=== PATIENT | male | born 1955 | race Two or more races ===

== ENCOUNTER 2019-09-04 13:28 | Outpatient (CLI) | payer OTHER | END 2019-09-04 13:32 | disposition home or self-care (01) | LOC: RAD 13:28 | DX: M54.5 Low back pain (principal); M54.6 Pain in thoracic spine ==

== ENCOUNTER → 2019-09-04 | Outpatient (CLI) | payer OTHER | END | disposition home or self-care (01) | LOC: LAB 14:38 | DX: R80.8 Other proteinuria (principal); N39.0 Urinary tract infection, site not specified; E03.8 Other specified hypothyroidism; R73.09 Other abnormal glucose; I10 Essential (primary) hypertension; E78.89 Other lipoprotein metabolism disorders ==

== ENCOUNTER 2019-09-05 09:31 | Outpatient (CLI) | payer OTHER | END 2019-09-05 09:39 | disposition home or self-care (01) | LOC: LAB 09:31 | DX: R80.8 Other proteinuria (principal); N39.0 Urinary tract infection, site not specified; E03.8 Other specified hypothyroidism; I10 Essential (primary) hypertension; R73.09 Other abnormal glucose; E78.49 Other hyperlipidemia ==

== ENCOUNTER 2021-02-03 09:54 | Emergency (ER) | payer OTHER ==
[~2021-02-03] VITALS: Ht 177.8 cm; Wt 72.6 kg
[2021-02-03] MEDS ORDERED: COZAAR50 MG (10:18)
[2021-02-03] MEDS ORDERED: CIPRO500 MG PO (17:58)
[2021-02-03] MEDS ORDERED: LEVSIN/SL0.125 MG SL (17:58)
[2021-02-03] MEDS ORDERED: PRILOSEC OTC20 MG PO (17:58)
[2021-02-03] MEDS ORDERED: FLAGYL500MG PO (17:58)
[2021-02-03] MEDS ORDERED: PROBIOTIC1 EACH PO (17:58)
[2021-02-03] MEDS ORDERED: COZAAR50 MG PO (17:58)
== END 2021-02-03 20:24 | disposition home or self-care (01) ==
LOC: ER 09:54
DX: K57.32 Diverticulitis of large intestine without perforation or abscess without bleeding (principal); R10.32 Left lower quadrant pain

== ENCOUNTER 2021-08-02 10:28 | Outpatient (CLI) | payer OTHER ==
[~2021-08-02 10:28] MED LIST: CIPRO500 MG PO; COZAAR50 MG; COZAAR50 MG PO; FLAGYL500MG PO; LEVSIN/SL0.125 MG SL; PRILOSEC OTC20 MG PO; PROBIOTIC1 EACH PO
== END 2021-08-02 10:37 | disposition home or self-care (01) ==
LOC: LAB 10:28
PROVIDERS: ATTEND Internal Medicine
DX: K57.92 Diverticulitis of intestine, part unspecified, without perforation or abscess without bleeding (principal); I73.9 Peripheral vascular disease, unspecified; M50.30 Other cervical disc degeneration, unspecified cervical region; L98.499 Non-pressure chronic ulcer of skin of other sites with unspecified severity; N18.30 Chronic kidney disease, stage 3 unspecified; D69.2 Other nonthrombocytopenic purpura; N40.0 Benign prostatic hyperplasia without lower urinary tract symptoms; I11.9 Hypertensive heart disease without heart failure; L25.9 Unspecified contact dermatitis, unspecified cause; I45.10 Unspecified right bundle-branch block; L60.0 Ingrowing nail; M06.4 Inflammatory polyarthropathy; I10 Essential (primary) hypertension

== ENCOUNTER 2021-08-03 10:24 | Outpatient (CLI) | payer OTHER | END 2021-08-03 10:37 | disposition home or self-care (01) | LOC: LAB 10:24 | PROVIDERS: ATTEND Internal Medicine | DX: K57.92 Diverticulitis of intestine, part unspecified, without perforation or abscess without bleeding (principal); I73.9 Peripheral vascular disease, unspecified; M50.30 Other cervical disc degeneration, unspecified cervical region; L98.499 Non-pressure chronic ulcer of skin of other sites with unspecified severity; N18.30 Chronic kidney disease, stage 3 unspecified; D69.2 Other nonthrombocytopenic purpura; N40.0 Benign prostatic hyperplasia without lower urinary tract symptoms; I11.9 Hypertensive heart disease without heart failure; R31.29 Other microscopic hematuria; L25.9 Unspecified contact dermatitis, unspecified cause; I45.10 Unspecified right bundle-branch block; L60.0 Ingrowing nail; M06.4 Inflammatory polyarthropathy ==

== ENCOUNTER 2022-03-02 09:52 | Outpatient (CLI) | payer OTHER | END 2022-03-02 10:02 | disposition home or self-care (01) | LOC: LAB 09:52 | PROVIDERS: ATTEND Internal Medicine | DX: I73.9 Peripheral vascular disease, unspecified (principal); L25.9 Unspecified contact dermatitis, unspecified cause; D69.6 Thrombocytopenia, unspecified; R63.4 Abnormal weight loss; K57.52 Diverticulitis of both small and large intestine without perforation or abscess without bleeding; N40.0 Benign prostatic hyperplasia without lower urinary tract symptoms; I11.9 Hypertensive heart disease without heart failure; R73.03 Prediabetes; E55.9 Vitamin D deficiency, unspecified; E03.9 Hypothyroidism, unspecified; E78.5 Hyperlipidemia, unspecified; Z12.11 Encounter for screening for malignant neoplasm of colon; R31.29 Other microscopic hematuria; N18.30 Chronic kidney disease, stage 3 unspecified ==

== ENCOUNTER 2022-10-22 06:08 | Emergency (ER) | payer OTHER ==
[~2022-10-22] VITALS: Ht 175.3 cm; Wt 74.4 kg
== END 2022-10-22 09:22 | disposition home or self-care (01) ==
LOC: ER 06:08
DX: B02.8 Zoster with other complications (principal)

== ENCOUNTER 2022-11-30 10:12 | Outpatient (CLI) | payer OTHER | END 2022-11-30 10:27 | disposition home or self-care (01) | LOC: LAB 10:12 | DX: G61.9 Inflammatory polyneuropathy, unspecified (principal); K29.50 Unspecified chronic gastritis without bleeding; I73.9 Peripheral vascular disease, unspecified; B48.8 Other specified mycoses; N40.0 Benign prostatic hyperplasia without lower urinary tract symptoms; I11.9 Hypertensive heart disease without heart failure; D69.2 Other nonthrombocytopenic purpura; R31.29 Other microscopic hematuria; L25.9 Unspecified contact dermatitis, unspecified cause; D69.6 Thrombocytopenia, unspecified; R63.4 Abnormal weight loss; K57.92 Diverticulitis of intestine, part unspecified, without perforation or abscess without bleeding ==

== ENCOUNTER 2022-12-03 10:28 | Outpatient (CLI) | payer OTHER | END 2022-12-03 10:29 | disposition home or self-care (01) | LOC: LAB 10:28 | DX: K29.50 Unspecified chronic gastritis without bleeding (principal); K57.92 Diverticulitis of intestine, part unspecified, without perforation or abscess without bleeding; R63.4 Abnormal weight loss ==

== ENCOUNTER 2022-12-06 11:46 | Outpatient (CLI) | payer OTHER | END 2022-12-06 11:58 | disposition home or self-care (01) | LOC: SONOGRAMA 11:46 | PROVIDERS: ATTEND Internal Medicine | DX: N40.0 Benign prostatic hyperplasia without lower urinary tract symptoms (principal); I11.9 Hypertensive heart disease without heart failure; D69.2 Other nonthrombocytopenic purpura; R31.29 Other microscopic hematuria; N18.30 Chronic kidney disease, stage 3 unspecified ==

== ENCOUNTER 2022-12-11 06:29 | Outpatient (CLI) | payer OTHER | END 2022-12-11 06:33 | disposition home or self-care (01) | LOC: LAB 06:29 | PROVIDERS: ATTEND Internal Medicine | DX: R73.09 Other abnormal glucose (principal); N18.30 Chronic kidney disease, stage 3 unspecified; N40.0 Benign prostatic hyperplasia without lower urinary tract symptoms; I11.9 Hypertensive heart disease without heart failure ==

== ENCOUNTER 2023-04-09 11:17 | Outpatient (CLI) | payer OTHER | END 2023-04-09 11:21 | disposition home or self-care (01) | LOC: RAD 11:17 | PROVIDERS: ATTEND Internal Medicine | DX: M17.0 Bilateral primary osteoarthritis of knee (principal) ==

== ENCOUNTER 2023-04-15 09:47 | Outpatient (CLI) | payer OTHER | END 2023-04-15 09:54 | disposition home or self-care (01) | LOC: LAB 09:47 | DX: R97.20 Elevated prostate specific antigen [PSA] (principal) ==

== ENCOUNTER 2023-04-24 10:49 | Outpatient (CLI) | payer OTHER | END 2023-04-24 10:53 | disposition home or self-care (01) | LOC: RAD 10:49 | DX: G61.9 Inflammatory polyneuropathy, unspecified (principal); K29.50 Unspecified chronic gastritis without bleeding; I73.9 Peripheral vascular disease, unspecified; L21.8 Other seborrheic dermatitis; J66.8 Airway disease due to other specific organic dusts; B48.8 Other specified mycoses; N18.30 Chronic kidney disease, stage 3 unspecified; N40.0 Benign prostatic hyperplasia without lower urinary tract symptoms; I11.9 Hypertensive heart disease without heart failure; D69.2 Other nonthrombocytopenic purpura; M17.0 Bilateral primary osteoarthritis of knee; L25.9 Unspecified contact dermatitis, unspecified cause ==

== ENCOUNTER 2023-08-12 10:53 | Outpatient (CLI) | payer OTHER ==
[2023-08-12 12:35] LABS: URINE APPEARANCE Clear; URINE BILIRRUBIN Negative (NEGATIVE); URINE BLOOD Negative; URINE COLOR Yellow; URINE GLUCOSE Negative (NEGATIVE); URINE LEUKOCYTE Negative; URINE NITRATE Negative; URINE PROTEIN Negative (NEGATIVE)
[2023-08-12 12:38] LABS: URINE EPITHELIAL CELLS 2.2 uL (0.0-38.8); URINE RBC 3.5 uL (0.0-20.8)
[2023-08-12 12:56] LABS: HEMATOCRIT 42.6 % (39.0-48.0); HEMOGLOBIN 14.5 g/dL (13-16.00); MEAN CORPUSCULAR HEMOGLOBIN 31.6 pg (27.00-32.0); PLATELET COUNT 131 K/uL (150-450); RED BLOOD COUNT 4.58 M/uL (4.00-6.00); RED CELL DISTRIBUTION WIDTH 13.1 % (11.5-14.5)
[2023-08-12 13:09] LABS: ALBUMIN 3.9 gm/dL (3.4-5.0); BILIRUBIN TOTAL 0.75 mg/dL (0.3-1.2); CALCIUM 9.5 mg/dL (8.5-10.1); CHOL HDL RATIO 2.8 (0-5.0); CREATININE SERUM 1.44 mg/dL (0.70-1.30); GFR 48.5; GLOBULINA 3.5 G/DL (2.4-3.5); POTASSIUM 4.27 mEq/L (3.5-5.1); PROSTATIC SPECIFIC ANTIGEN 2.45 NG/ML (0.010-4.00); TOTAL PROTEIN 7.4 gm/dL (6.4-8.2)
[2023-08-12 13:27] LABS: URINE BACTERIA 1.2 uL (0.0-1933)
== END 2023-08-12 10:54 | disposition home or self-care (01) ==
LOC: LAB 10:53
PROVIDERS: ATTEND Internal Medicine
DX: G61.9 Inflammatory polyneuropathy, unspecified (principal); K29.50 Unspecified chronic gastritis without bleeding; I73.9 Peripheral vascular disease, unspecified; L21.8 Other seborrheic dermatitis; J66.8 Airway disease due to other specific organic dusts; B48.8 Other specified mycoses; N40.0 Benign prostatic hyperplasia without lower urinary tract symptoms; I11.9 Hypertensive heart disease without heart failure; D69.2 Other nonthrombocytopenic purpura; R31.29 Other microscopic hematuria; L25.9 Unspecified contact dermatitis, unspecified cause; D69.6 Thrombocytopenia, unspecified

== ENCOUNTER 2023-08-13 13:24 | Outpatient (CLI) | payer OTHER ==
[2023-08-13 15:36] LABS: ob NEGATIVE (NEGATIVE)
== END 2023-08-13 13:25 | disposition home or self-care (01) ==
LOC: LAB 13:24
PROVIDERS: ATTEND Internal Medicine
DX: G61.9 Inflammatory polyneuropathy, unspecified (principal); K29.50 Unspecified chronic gastritis without bleeding; I73.9 Peripheral vascular disease, unspecified; L21.8 Other seborrheic dermatitis; J66.8 Airway disease due to other specific organic dusts; B48.8 Other specified mycoses; N18.30 Chronic kidney disease, stage 3 unspecified; N40.0 Benign prostatic hyperplasia without lower urinary tract symptoms; I11.9 Hypertensive heart disease without heart failure; D69.2 Other nonthrombocytopenic purpura; M17.0 Bilateral primary osteoarthritis of knee; L25.9 Unspecified contact dermatitis, unspecified cause; D69.6 Thrombocytopenia, unspecified

== ENCOUNTER 2023-10-05 09:32 | Outpatient (CLI) | payer OTHER ==
[2023-10-05 11:36] LABS: HEMATOCRIT 42.5 % (39.0-48.0); HEMOGLOBIN 14.9 g/dL (13-16.00); MEAN CELL VOLUME 93.7 fL (80.0-100.00); MEAN CORPUSCULAR HEMOGLOBIN 32.8 pg (27.00-32.0); PLATELET COUNT 163 K/uL (150-450); RED BLOOD COUNT 4.54 M/uL (4.00-6.00); RED CELL DISTRIBUTION WIDTH 13.5 % (11.5-14.5)
[2023-10-05 11:48] LABS: ERYTHROCYTE SEDIMENTATION RATE 1 mm/hr
== END 2023-10-05 09:34 | disposition home or self-care (01) ==
LOC: LAB 09:32
PROVIDERS: ATTEND Internal Medicine Hematology & Oncology
DX: D64.89 Other specified anemias (principal); D51.8 Other vitamin B12 deficiency anemias; R70.0 Elevated erythrocyte sedimentation rate; M06.9 Rheumatoid arthritis, unspecified

== ENCOUNTER → 2023-12-18 11:05 | Outpatient (CLI) | payer OTHER ==
[~2023-12-18 11:05] MED LIST changes: +ACID REDUCER20 M1 PO; +CLARITIN-D 121 EACH PO; +FINASTERIDE5 MG; +FINASTERIDE5 MG PO; +LOSARTAN POTAS100 MG PO; +OMEPRAZOLE20 MG PO; +TAMS0.4C PO; +TAMSULOSIN HCL0.4 MG PO; +ZITHROMAX500 MG PO
[2023-12-18 12:23] LABS: PH,URINE 5.5 (5.0-8.0); URINE APPEARANCE Clear; URINE BILIRRUBIN Negative (NEGATIVE); URINE BLOOD Negative; URINE COLOR Yellow; URINE GLUCOSE Negative (NEGATIVE); URINE LEUKOCYTE Negative; URINE NITRATE Negative; URINE PROTEIN Negative (NEGATIVE)
[2023-12-18 12:26] LABS: URINE EPITHELIAL CELLS 1.6 uL (0.0-38.8); URINE RBC 2.4 uL (0.0-20.8); URINE WBC 2.4 uL (0.0-23.2)
[2023-12-18 13:07] LABS: ALBUMIN 3.5 gm/dL (3.4-5.0); BILIRUBIN TOTAL 0.51 mg/dL (0.3-1.2); CALCIUM 9.1 mg/dL (8.5-10.1); CHOL HDL RATIO 2.8 (0-5.0); CREATININE SERUM 1.27 mg/dL (0.70-1.30); GFR 56.06; GLOBULINA 3.7 G/DL (2.4-3.5); POTASSIUM 4.58 mEq/L (3.5-5.1); PROSTATIC SPECIFIC ANTIGEN 1.6 NG/ML (0.010-4.00); TOTAL PROTEIN 7.2 gm/dL (6.4-8.2)
[2023-12-18 13:14] LABS: TSH 5.06 uIU/mL (0.358-3.74)
[2023-12-18 13:19] LABS: HEMATOCRIT 42.6 % (39.0-48.0); HEMOGLOBIN 14.5 g/dL (13-16.00); MEAN CELL VOLUME 95.1 fL (80.0-100.00); MEAN CORPUSCULAR HEMOGLOBIN 32.4 pg (27.00-32.0); MEAN CORPUSCULAR HGB CONC 34.1 g/dl (32.0-36.0); RED BLOOD COUNT 4.47 M/uL (4.00-6.00); RED CELL DISTRIBUTION WIDTH 13.1 % (11.5-14.5)
[2023-12-18 13:22] LABS: PLATELET COUNT 111 K/uL (150-450)
== END | disposition home or self-care (01) ==
LOC: LAB 11:05
PROVIDERS: ATTEND Internal Medicine
DX: A90 Dengue fever [classical dengue] (principal); D72.819 Decreased white blood cell count, unspecified; D69.6 Thrombocytopenia, unspecified; G61.9 Inflammatory polyneuropathy, unspecified; K29.50 Unspecified chronic gastritis without bleeding; I73.9 Peripheral vascular disease, unspecified; L21.8 Other seborrheic dermatitis; J66.8 Airway disease due to other specific organic dusts; B48.8 Other specified mycoses; N18.30 Chronic kidney disease, stage 3 unspecified; N40.0 Benign prostatic hyperplasia without lower urinary tract symptoms; I11.9 Hypertensive heart disease without heart failure; D69.2 Other nonthrombocytopenic purpura; N39.0 Urinary tract infection, site not specified; N40.1 Benign prostatic hyperplasia with lower urinary tract symptoms; I25.10 Atherosclerotic heart disease of native coronary artery without angina pectoris; E78.9 Disorder of lipoprotein metabolism, unspecified; R97.20 Elevated prostate specific antigen [PSA]

== ENCOUNTER 2024-01-04 09:39 | Outpatient (CLI) | payer OTHER ==
[2024-01-04 10:55] LABS: HEMATOCRIT 41.9 % (39.0-48.0); HEMOGLOBIN 14.7 g/dL (13-16.00); MEAN CELL VOLUME 93.3 fL (80.0-100.00); MEAN CORPUSCULAR HEMOGLOBIN 32.7 pg (27.00-32.0); RED BLOOD COUNT 4.49 M/uL (4.00-6.00); RED CELL DISTRIBUTION WIDTH 13.5 % (11.5-14.5)
[2024-01-04 11:08] LABS: PLATELET COUNT 126 K/uL (150-450)
[2024-01-04 11:22] LABS: ALBUMIN 3.8 gm/dL (3.4-5.0); BILIRUBIN TOTAL 1.17 mg/dL (0.3-1.2); CALCIUM 9.4 mg/dL (8.5-10.1); CREATININE SERUM 1.52 mg/dL (0.70-1.30); GFR 45.56; GLOBULINA 3.8 G/DL (2.4-3.5); POTASSIUM 4.53 mEq/L (3.5-5.1); TOTAL PROTEIN 7.6 gm/dL (6.4-8.2)
== END 2024-01-04 09:52 | disposition home or self-care (01) ==
LOC: LAB 09:39
PROVIDERS: ATTEND Internal Medicine
DX: D72.819 Decreased white blood cell count, unspecified (principal); D69.6 Thrombocytopenia, unspecified; G61.9 Inflammatory polyneuropathy, unspecified; K29.50 Unspecified chronic gastritis without bleeding; I73.9 Peripheral vascular disease, unspecified; L21.8 Other seborrheic dermatitis; J66.8 Airway disease due to other specific organic dusts; B48.8 Other specified mycoses; N18.30 Chronic kidney disease, stage 3 unspecified; N40.0 Benign prostatic hyperplasia without lower urinary tract symptoms; I11.9 Hypertensive heart disease without heart failure; D69.2 Other nonthrombocytopenic purpura; M17.0 Bilateral primary osteoarthritis of knee; L25.9 Unspecified contact dermatitis, unspecified cause; R63.4 Abnormal weight loss; K57.92 Diverticulitis of intestine, part unspecified, without perforation or abscess without bleeding; I45.10 Unspecified right bundle-branch block

== ENCOUNTER 2024-02-08 09:16 | Outpatient (CLI) | payer OTHER ==
[2024-02-08 10:13] LABS: HEMATOCRIT 43.2 % (39.0-48.0); HEMOGLOBIN 14.8 g/dL (13-16.00); MEAN CELL VOLUME 96.3 fL (80.0-100.00); MEAN CORPUSCULAR HGB CONC 34.3 g/dl (32.0-36.0); PLATELET COUNT 141 K/uL (150-450); RED BLOOD COUNT 4.49 M/uL (4.00-6.00); RED CELL DISTRIBUTION WIDTH 13.5 % (11.5-14.5)
== END 2024-02-08 09:17 | disposition home or self-care (01) ==
LOC: LAB 09:16
PROVIDERS: ATTEND Dentist
DX: D69.6 Thrombocytopenia, unspecified (principal)

== ENCOUNTER 2024-09-12 09:38 | Outpatient (CLI) | payer OTHER ==
[2024-09-12 12:16] LABS: HEMATOCRIT 42.1 % (39.0-48.0); HEMOGLOBIN 14.3 g/dL (13-16.00); MEAN CELL VOLUME 95.4 fL (80.0-100.00); MEAN CORPUSCULAR HEMOGLOBIN 32.3 pg (27.00-32.0); MEAN CORPUSCULAR HGB CONC 33.9 g/dl (32.0-36.0); PLATELET COUNT 132 K/uL (150-450); RED BLOOD COUNT 4.41 M/uL (4.00-6.00); RED CELL DISTRIBUTION WIDTH 12.6 % (11.5-14.5)
[2024-09-12 12:58] LABS: ALBUMIN 3.6 gm/dL (3.4-5.0); BILIRUBIN TOTAL 0.64 mg/dL (0.3-1.2); CALCIUM 8.7 mg/dL (8.5-10.1); CHOL HDL RATIO 2.7 (0-5.0); CREATININE SERUM 1.19 mg/dL (0.70-1.30); GFR 60.26; GLOBULINA 3.6 G/DL (2.4-3.5); POTASSIUM 4.35 mEq/L (3.5-5.1); PROSTATIC SPECIFIC ANTIGEN 1.02 NG/ML (0.010-4.00); TOTAL PROTEIN 7.2 gm/dL (6.4-8.2); TSH 4.53 uIU/mL (0.358-3.74)
[2024-09-12 13:06] LABS: URINE APPEARANCE Clear; URINE BILIRRUBIN Negative (NEGATIVE); URINE BLOOD Negative; URINE COLOR Yellow; URINE GLUCOSE Negative (NEGATIVE); URINE KETONE Negative (NEGATIVE); URINE LEUKOCYTE Negative; URINE NITRATE Negative; URINE PROTEIN Negative (NEGATIVE)
[2024-09-12 13:10] LABS: URINE EPITHELIAL CELLS 2.6 uL (0.0-38.8)
[2024-09-12 13:33] LABS: URINE BACTERIA 1.2 uL (0.0-1933); URINE RBC 1.7 uL (0.0-20.8); URINE WBC 0.9 uL (0.0-23.2)
== END 2024-09-12 09:57 | disposition home or self-care (01) ==
LOC: LAB 09:38
DX: N39.0 Urinary tract infection, site not specified (principal); N40.1 Benign prostatic hyperplasia with lower urinary tract symptoms; D51.0 Vitamin B12 deficiency anemia due to intrinsic factor deficiency; I25.10 Atherosclerotic heart disease of native coronary artery without angina pectoris; E78.9 Disorder of lipoprotein metabolism, unspecified; R97.20 Elevated prostate specific antigen [PSA]; D69.6 Thrombocytopenia, unspecified; G61.9 Inflammatory polyneuropathy, unspecified; K29.50 Unspecified chronic gastritis without bleeding; I73.9 Peripheral vascular disease, unspecified; L21.8 Other seborrheic dermatitis; J66.8 Airway disease due to other specific organic dusts; B48.8 Other specified mycoses; N18.30 Chronic kidney disease, stage 3 unspecified; N40.0 Benign prostatic hyperplasia without lower urinary tract symptoms; I11.9 Hypertensive heart disease without heart failure; D69.2 Other nonthrombocytopenic purpura; R31.29 Other microscopic hematuria

== ENCOUNTER 2024-10-01 10:54 | Outpatient (CLI) | payer OTHER | END 2024-10-01 11:01 | disposition home or self-care (01) | LOC: TOM 10:54 | PROVIDERS: ATTEND Otolaryngology | DX: J31.0 Chronic rhinitis (principal) ==

== ENCOUNTER 2025-02-06 09:04 | Outpatient (CLI) | payer OTHER ==
[2025-02-06 10:33] LABS: BASO % 0.4 % (0.1-1.2); EOS # 0.10 (0.04-0.54); EOS % 2.1 % (0.7-7.0); LYMPH # 1.70 (1.18-3.74); LYMPH % 36.1 % (19.3-53.1); MEAN PLATELET VOLUME 9.80 fl (9.4-12.4); MONO # 0.38 (0.24-0.82); MONO % 8.1 % (4.7-12.5); NEUT # 2.50 (1.56-6.13); NEUT % 53.1 % (34.0-71.1); RED CELL DISTRIBUTION WIDTH 12.2 % (11.6-14.4)
== END 2025-02-06 09:07 | disposition home or self-care (01) ==
LOC: LAB 09:04
DX: D72.819 Decreased white blood cell count, unspecified (principal); D69.6 Thrombocytopenia, unspecified

== ENCOUNTER 2025-02-09 07:29 | Outpatient (CLI) | payer OTHER | END 2025-02-09 07:33 | disposition home or self-care (01) | LOC: SONOGRAMA 07:29 | DX: G44.009 Cluster headache syndrome, unspecified, not intractable (principal); M54.2 Cervicalgia; M62.838 Other muscle spasm ==

== ENCOUNTER 2025-04-05 07:07 | Outpatient (CLI) | payer OTHER | END 2025-04-05 07:12 | disposition home or self-care (01) | LOC: SONOGRAMA 07:07 | PROVIDERS: ATTEND Physical Medicine & Rehabilitation | DX: D72.819 Decreased white blood cell count, unspecified (principal); D69.59 Other secondary thrombocytopenia ==